=== PATIENT | female | born 1995 | race Hispanic/Latino ===

== ENCOUNTER 2018-11-27 18:54 | Emergency (ER) | payer BC, MEDICARE ==
[~2018-11-27] VITALS: Ht 152.4 cm; Wt 77.1 kg
== END 2018-11-27 21:10 | disposition home or self-care (01) ==
LOC: ER 18:54 → FSED 21:10
DX: O26.91 Pregnancy related conditions, unspecified, first trimester (principal); R50.9 Fever, unspecified; R05 Cough; J11.1 Influenza due to unidentified influenza virus with other respiratory manifestations
CPT/HCPCS: 83518; 87400; 99283

== ENCOUNTER 2022-03-19 09:22 | Emergency (ER) | payer BC, OTHER ==
[~2022-03-19] VITALS: Ht 152.4 cm; Wt 90.7 kg
[2022-03-19] MEDS ORDERED: ULTRAM 50MG50 MG PO (09:45)
== END 2022-03-19 09:50 | disposition home or self-care (01) ==
LOC: FSED 09:44
DX: H66.92 Otitis media, unspecified, left ear (principal)
CPT/HCPCS: 99282